=== PATIENT | female | born 1990 | race Caucasian/White ===

== ENCOUNTER 2019-02-20 05:48 | Emergency (ER) | payer OTHER ==
[2019-02-20] MEDS ORDERED: HYDROmorphONE/DILAUDID 2 MG/ML INJ IVP ONE (06:03)
[2019-02-20] MEDS ORDERED: NS 1,000 ML IV ONE (06:03)
[2019-02-20] MEDS ORDERED: ONDANSETRON 4 MG/2 ML VIAL IVP ONE (06:03)
--- NOTE | 2019-02-20 06:09 | EDPHY ---
H & P Stated Complaint: ABD PAIN, VOMITING Source: Patient - Personal History LMP (Females 10-55): 15-21 Days Ago Current Tetanus Diphtheria and Acellular Pertussis (TDAP): Yes - Medical/Surgical History Hx Asthma: Yes Hx Chronic Respiratory Disease: No Hx Diabetes: No Hx Cardiac Disease: No Hx Renal Disease: No Hx Cirrhosis: No Hx Alcoholism: No Hx HIV/AIDS: No Hx Splenectomy or Spleen Trauma: No Other PMH: HIP REPLACEMENT L, 2 C-SECTIONS - Social History Smoking Status: Never smoked Time Seen by Provider: 02/20/19 06:08 HPI/ROS: 0710: I assumed care of this patient from Dr. Dyson at shift change. 0740: Patient tolerated her PO trial. Return precautions provided; patient is comfortable with this plan. (Edgar Mathews) HPI CHIEF COMPLAINT: Abdominal pain vomiting. HISTORY OF PRESENT ILLNESS: Patient is a very pleasant 29-year-old female she is visiting from out of town from [place], she presents emergency room with lower abdominal pain this was sudden onset woke from sleep around 5: 00 a.m. With associated nausea vomiting. No diarrhea. She complains of right lower quadrant pain rather severe. 10/10 current pain. No back pain. No fever. This woke her from sleep. Past Medical History: Arthritis Past Surgical History: Left hip replacement x2. Social History: Denies drugs alcohol tobacco. From stable. Family History: Noncontributory ROS REVIEW OF SYSTEMS: 10 Systems were reviewed and negative with the exception of the elements mentioned in the history of present illness. Exam Constitutional triage nursing summary reviewed, vital signs reviewed, awake/ alert. Eyes normal conjunctivae and sclera, EOMI, PERRLA. HENT normal inspection, atraumatic, moist mucus membranes, no epistaxis, neck supple/ no meningismus, no raccoon eyes. Respiratory clear to auscultation bilaterally, normal breath sounds, no respiratory distress, no wheezing. Cardiovascular rate normal, regular rhythm, no murmur, no edema, distal pulses normal. Gastrointestinal soft, non-tender, no rebound, no guarding, normal bowel sounds, no distension, no pulsatile mass. Genitourinary no CVA tenderness. Musculoskeletal no midline vertebral tenderness, full range of motion, no calf swelling, no tenderness of extremities, no meningismus, good pulses, neurovascularly intact. Skin pink, warm, & dry, no rash, skin atraumatic. Neurologic awake, alert and oriented x 3, AAOx3, moves all 4 extremities equally, motor intact, sensory intact, CN II-XII intact, normal cerebellar, normal vision, normal speech. Psychiatric normal mood/affect. Heme/Lymph/Immune no lymphadenopathy. Differential Diagnosis: Differential diagnosis includes but is not limited to and in no particular order: Bowel obstruction, appendicitis, gallbladder disease, diverticulitis, colitis, enteritis, perforated viscus, gastritis, GERD , esophagitis, urinary tract infection, pyelonephritis, kidney stones Medical Decision Making: Plan for this patient IV establishment IV fluid bolus , IV Dilaudid for pain control IV Zofran for nausea, basic labs, urinalysis. test. CT scan abdomen pelvis with IV contrast rule out acute appendicitis. Re-evaluation: CT scan abdomen pelvis with IV contrast called to me by Dr. De La Rosa. Negative for acute appendicitis. Does show mesenteric adenitis 0708AM (Familia Dyson) Constitutional: Initial Vital Signs Temperature (C) 36.6 C 02/20/19 05:52 Heart Rate 87 02/20/19 05:52 Respiratory Rate 16 02/20/19 05:52 Blood Pressure 120/82 H 02/20/19 05:52 O2 Sat (%) 98 02/20/19 05:52 O2 Delivery Mode Room Air Allergies/Adverse Reactions: almond Allergy (Verified 02/20/19 05:52) celery Allergy (Verified 02/20/19 05:52) citric acid Allergy (Verified 02/20/19 05:52) fluconazole [From Diflucan] Allergy (Verified 02/20/19 05:52) Home Medications: Medication Instructions Recorded NK [No Known Home Meds] 02/20/19 - Diagnostics Imaging Results: Imaging Impressions Abdomen CT 02/20/19 06:03 Impression: 1. No definite acute findings. 2. Moderate stool in the proximal colon. 3. Nonspecific mildly prominent mesenteric lymph nodes most prominent in the right lower quadrant, possibly reactive. Findings discussed with Familia Dyson MD 02/20/2019 at 7:04. - Data Points Laboratory Results: Laboratory Results 02/20/19 06:05 02/20/19 06:05 02/20/19 02/20/19 02/20/19 06:05 06:05 06:05 WBC 9.66 10^3/uL H 10^3/uL (3.80-9.50) RBC 5.36 10^6/uL H 10^6/uL (4.18-5.33) Hgb 11.1 g/dL L g/dL (12.6-16.3) Hct 37.2 % L % (38.0-47.0) MCV 69.4 fL L fL (81.5-99.8) MCH 20.7 pg L pg (27.9-34.1) MCHC 29.8 g/dL L g/dL (32.4-36.7) RDW 15.9 % H % (11.5-15.2) Plt Count 454 10^3/uL H 10^3/uL (150-400) MPV 9.4 fL fL (8.7-11.7) Neut % (Auto) 67.3 % % (39.3-74.2) Lymph % (Auto) 25.4 % % (15.0-45.0) [place] % (Auto) 5.4 % % (4.5-13.0) Eos % (Auto) 1.1 % % (0.6-7.6) Baso % (Auto) 0.4 % % (0.3-1.7) Nucleat RBC Rel Count 0.0 % % (0.0-0.2) Absolute Neuts (auto) 6.50 10^3/uL 10^3/uL (1.70-6.50) Absolute Lymphs (auto) 2.45 10^3/uL 10^3/uL (1.00-3.00) Absolute Monos (auto) 0.52 10^3/uL 10^3/uL (0.30-0.80) Absolute Eos (auto) 0.11 10^3/uL 10^3/uL (0.03-0.40) Absolute Basos (auto) 0.04 10^3/uL 10^3/uL (0.02-0.10) Absolute Nucleated RBC 0.00 10^3/uL 10^3/uL (0-0.01) Immature Gran % 0.4 % % (0.0-1.1) Immature Gran # 0.04 10^3/uL 10^3/uL (0.00-0.10) Platelet Estimate INCREASED H (ADEQ) Polychromasia 1+ H Hypochromasia 1+ H Microcytic Cells 1+ H Smear Review By Pending Sodium 139 mEq/L mEq/L (135-145) Potassium 4.7 mEq/L mEq/L (3.5-5.2) Chloride 107 mEq/L mEq/L (97-110) Carbon Dioxide 21 mEq/l L mEq/l (22-31) Anion Gap 11 mEq/L mEq/L (6-14) BUN 22 mg/dL mg/dL (7-23) Creatinine 0.5 mg/dL L mg/dL (0.6-1.0) Estimated GFR > 60 Glucose 104 mg/dL H mg/dL (70-100) Calcium 9.0 mg/dL mg/dL (8.5-10.4) Total Bilirubin 0.4 mg/dL mg/dL (0.1-1.4) Conjugated Bilirubin 0.1 mg/dL mg/dL (0.0-0.5) Unconjugated Bilirubin 0.3 mg/dL mg/dL (0.0-1.1) AST 21 IU/L IU/L (14-46) ALT 21 IU/L IU/L (9-52) Alkaline Phosphatase 114 IU/L IU/L (38-126) Total Protein 7.0 g/dL g/dL (6.3-8.2) Albumin 3.8 g/dL g/dL (3.5-5.0) Lipase 54 IU/L IU/L (23-300) Beta HCG, Qual NEGATIVE Medications Given: Discontinued Medications Hydromorphone HCl (Dilaudid) 1 mg IVP EDNOW ONE Stop: 02/20/19 06:04 Last Admin: 02/20/19 07:01 Dose: 1 mg Sodium Chloride (Ns) 1,000 mls @ 0 mls/hr IV EDNOW ONE; Wide Open PRN Reason: Protocol Stop: 02/20/19 06:04 Last Admin: 02/20/19 07:00 Dose: 1,000 mls Ketorolac Tromethamine (Toradol) 15 mg IVP EDNOW ONE Stop: 02/20/19 07:21 Last Admin: 02/20/19 07:27 Dose: 15 mg Ondansetron HCl (Zofran) 4 mg IVP EDNOW ONE Stop: 02/20/19 06:04 Last Admin: 02/20/19 07:01 Dose: 4 mg Departure - Departure Disposition: Home, Routine, Self-Care Clinical Impression: Mesenteric adenitis Abdominal pain Qualifiers: Abdominal location: generalized Qualified Code(s): R10.84 - Generalized abdominal pain Condition: Good Instructions: Acute Abdominal Pain (ED), Mesenteric Adenitis (ED) Additional Instructions: 1. Alternate Tylenol and Motrin for pain control. 2. [place] diet drink lots of fluids stay well-hydrated and rest. 3. Return to the emergency room if worsening abdominal pain, fever, vomiting. Referrals: Patient,NotPresent [Unknown] - As per Instructions [facility],. [Clinic] - As per Instructions
[2019-02-20 06:18] LABS: PLATELET COUNT 454 10^3/uL (150-400)
[2019-02-20] MEDS ORDERED: IOPAMIDOL (ISOVUE-300) 100 ML BTL ONE (06:22)
[2019-02-20] MEDS ORDERED: KETOROLAC 15 MG/1 ML SDV IVP ONE (07:20)
[2019-02-20 07:33] VITALS: BP 117/72
== END 2019-02-20 07:58 | disposition home or self-care (01) ==
DX: I88.0 Nonspecific mesenteric lymphadenitis (principal)
CPT/HCPCS: 96374; J1170; J1885; J2405; Q9967